=== PATIENT | female | born 1955 | race Caucasian/White ===

== ENCOUNTER 2018-02-06 21:27 | Emergency (ER) | payer MEDICAID ==
[~2018-02-06] VITALS: Ht 154.9 cm; Wt 45.8 kg
--- OUTSIDE RECORDS SUMMARY | ~2018-02-06 | XMS | Clinical Summary ---
Demographics + + + | Address | [address] | | | [place] [address] | + + + | Home Phone | | + + + | Preferred Language | Unknown | + + + | Marital Status | | + + + | Protestant Affiliation | Unknown | + + + | Race | Unknown | + + + | Ethnic Group | Unknown | + + + Author + + + | Author | [facility] | + + + | Organization | [facility] | + + + | Address | Unknown | + + + | Phone | Unavailable | + + + Support + + + + + | Name | Relationship | Address | Phone | + + + + + | Peter Vences | ECON | [address] | | | | | [place] | | | | | [address] | | + + + + + Care Team Providers + +------+ + | Care Deliverer Food Name | Role | Phone | + +------+ + | Manuelito Farire MD | PP | | + +------+ + Allergies Not on File Current Medications Not on file Active Problems Not on file Social History + +-------+ +--------+------+ | Tobacco [...] on file | | + + + Last Filed Vital Signs + + + + | Vital Sign | Reading | Time Taken | + + + + | Blood Pressure | 128/82 | 08/15/2009 8:30 AM PST | + + + + | Pulse | - | - | + + + + | Temperature | - | - | + + + + | Respiratory Rate | - | - | + + + + | Oxygen Saturation | - | - | + + + + | Inhaled Oxygen | - | - | | Concentration | | | + + + + | Weight | 46.7 kg (103 lb) | 08/15/2009 8:30 AM PST | + + + + | Height | 160 cm (5' 3") | 07/27/2009 8:27 AM PDT | + + + + | Body Mass Index | 18.25 | 08/15/2009 8:30 AM PST | + + + + Plan of Treatment Not on file Results Not on filefrom Last 3 Months
--- OUTSIDE RECORDS SUMMARY | ~2018-02-06 | XMS | Clinical Summary ---
Demographics + + + | Address | [address] | | | [place] [address] | + + + | Home Phone | | + + + | Preferred Language | Unknown | + + + | Marital Status | Unknown | + + + | Advent Affiliation | Unknown | + + + | Race | Unknown | + + + | Ethnic Group | Unknown | + + + Author + + + | Author | [facility] | | | and [facility] | + + + | Organization | [facility] | | | and [place] | + + + | Address | Unknown | + + + | Phone | Unavailable | + + + Care Team Providers + +------+ + | Care Manager Solution Name | Role | Phone | + +------+ + PP | Unavailable | + +------+ + Allergies Not on [...] on file | | + + + Plan of Treatment + + + + + | Health Maintenance | Due Date | Last Done | Comments | + + + + + | Hepatitis C | | | | | Screening | 7 | | | + + + + + | Vaccine: | | | | | Dtap/Tdap/Td (1 - | 6 | | | | Tdap) | | | | + + + + + | CERVICAL CANCER | | | | | SCREENING (PAP EVERY | 8 | | | | 3 YEARS 21-64 ) | | | | + + + + + | BREAST CANCER | | | | | SCREENING (MAMM Q2 | 7 | | | | YEARS 50-74) | | | | + + + + + | COLON CANCER | | | | | SCREENING | 7 | | | | (COLONOSCOPY EVERY | | | | | 10 YEARS 50-75) | | | | + + + + + | Vaccine: Influenza | | | | | (Season Ended) | 8 | | | + + + + + Results Not on filefrom Last 3 Months"
--- OUTSIDE RECORDS SUMMARY | ~2018-02-06 | XMS | Clinical Summary ---
Demographics + + + | Address | [address] | | | [place] [address] | + + + | Home Phone [...] Author + + + | Author | [facility] | | | and [facility] | + + + | Organization | [facility] | | | and [place] | + + + | Address | Unknown | + + + | Phone | Unavailable | + + + Care Team Providers + +------+ + | Care Medicaid Plan Compliance Director Name | Role | Phone | + [...]
--- OUTSIDE RECORDS SUMMARY | ~2018-02-06 | XMS | Clinical Summary ---
Demographics + + + | Address | [address] | | | [place] [address] | + + + | Home Phone | | + + + | Preferred Language | Unknown | + + + | Marital Status | | + + + | Latter-Day Affiliation | Unknown | + + + | Race | Unknown | + + + | Ethnic Group | Unknown | + + + Author + + + | Author | [facility] | + + + | Organization | [facility] | + + + | Address | Unknown | + + + | Phone | Unavailable | + + + Support + + + + + | Name | Relationship | Address | Phone | + + + + + | Peter Vences | ECON | [address] | | | | | [place] | | | | | [address] | | + + + + + Care Team Providers + +------+ + | Care Police Commanding Officer Name | Role | Phone | [...]
[~2018-02-06 21:27] MED LIST: CLINDAMYCIN HC150 MG PO; FLEXERIL5 MG PO; NEURONTIN300 MG PO; NORCO 5-325 TA1 EACH PO; VICODIN 5-3001 EACH PO; VITAMIN D5000 UNIT PO; ZANAFLEX4 MG PO
[2018-02-06] MEDS ORDERED: NORCO 5-325 TA1 EACH PO (23:23)
== END 2018-02-06 23:50 | disposition home or self-care (01) ==
LOC: ED 21:27
PROC: 0HQEXZZ Repair Left Lower Arm Skin, External Approach (ICD-10-PCS; principal; 2018-02-06)
DX: S51.812A Laceration without foreign body of left forearm, initial encounter (principal); S20.212A Contusion of left front wall of thorax, initial encounter; F17.200 Nicotine dependence, unspecified, uncomplicated; Z23 Encounter for immunization; Z88.5 Allergy status to narcotic agent; W55.19XA Other contact with horse, initial encounter
CPT/HCPCS: 12002; 71045; 71260; 73090; 74177; 80053; 82150; 82550; 83690; 85025; 86850; 86900; 86901; 90471; 90715; 96361; 96374; 96375; 99284; G0480; J1170; J2405; J7030; Q9967

== ENCOUNTER 2019-03-20 19:06 | Emergency (ER) | payer SELFPAY ==
[~2019-03-20] VITALS: Ht 154.9 cm; Wt 44.5 kg
--- OUTSIDE RECORDS SUMMARY | ~2019-03-20 | XMS | Clinical Summary ---
Demographics + + + | Address | [address] | | | [place] [address] | + + + | Home Phone | | + + + | Preferred Language | Unknown | + + + | Marital Status | | + + + | Catholic Affiliation | Unknown | + + + | Race | Unknown | + + + | Ethnic Group | Unknown | + + + Author + + + | Author | [facility] | + + + | Organization | [facility] | + + + | Address | Unknown | + + + | Phone | Unavailable | + + + Support + + + + + | Name | Relationship | Address | Phone | + + + + + | Peter Vences | ECON | [address] | | | | | [place] | | | | | [address] | | + + + + + Care Team Providers + +------+ + | Care Scene Painter Name | Role | Phone | + +------+ + | Manuelito Fraire MD | PP | | + +------+ [...]
--- OUTSIDE RECORDS SUMMARY | ~2019-03-20 | XMS | Clinical Summary ---
Demographics + + + | Address | [address] | | | [place] [address] | + + + | Home Phone | | + + + | Preferred Language | Unknown | + + + | Marital Status | Unknown | + + + | Lutheran Affiliation | Unknown | + + + | Race | Unknown | + + + | Ethnic Group | Unknown | + + + Author + + + | Author | [facility] | | | and [facility] | + + + | Organization | [facility] | | | and [place] | + + + | Address | Unknown | + + + | Phone | Unavailable | + + + Care Team Providers + +------+ + | Care Insole Stiffener Name | Role | Phone | + +------+ + PP | Unavailable | + +------+ + Allergies Not on File Medications Not on file Active Problems Not [...] on file | | + + + + + + + | Job Start Date | Occupation | Industry | + + + + | Not on file | Not on file | Not on file | + + + + + + + + | Travel History | Travel Start | Travel End | + + + + + + | No recent travel history available. | + + Plan of Treatment + + + + + | Health Maintenance | Due Date | Last Done | Comments | + + + + + | Vaccine: | | | | | Dtap/Tdap/Td (1 - | 6 | | | | Tdap) | | | | + + + + + | Cervical Cancer | | | | | Screening (Pap) | 7 | | | + + + + + | Vaccine: Zoster (1 | | | | | of 2) | 7 | | | + + + + + | Vaccine: Influenza | | | | | (Season Ended) | 9 | | | + + + + + Results Not on filefrom Last 3 Months"
--- OUTSIDE RECORDS SUMMARY | ~2019-03-20 | XMS | Clinical Summary ---
Demographics + + + | Address | [address] | | | [place] [address] | + + + | Home Phone | | + + + | Preferred Language | Unknown | + + + | Marital Status | | + + + | Catholic Affiliation | Unknown | + + + | Race | Unknown | + + + | Ethnic Group | Unknown | + + + Author + + + | Author | [facility] | + + + | Organization | [facility] | + + + | Address | Unknown | + + + | Phone | Unavailable | + + + Support + + + + + | Name | Relationship | Address | Phone | + + + + + | Peter Vences | ECON | [address] | | | | | [place] | | | | | [address] | | + + + + + Care Team Providers + +------+ + | Care Coin Dealer Name | Role | Phone | + [...]
--- OUTSIDE RECORDS SUMMARY | ~2019-03-20 | XMS | Clinical Summary ---
Demographics + + + | Address | [address] | | | [place] [address] | + + + | Home Phone | | + + + | Preferred Language | Unknown | + + + | Marital Status | Unknown | + + + | Methodist Affiliation | Unknown | + + + | Race | Unknown | + + + | Ethnic Group | Unknown | + + + Author + + + | Author | [facility] | | | and [facility] | + + + | Organization | [facility] | | | and [place] | + + + | Address | Unknown | + + + | Phone | Unavailable | + + + Care Team Providers + +------+ + | Care Spa Attendant Name | Role | Phone | + [...]
[2019-03-20] MEDS ORDERED: VALIUM5 MG PO (19:27)
== END 2019-03-20 20:00 | disposition home or self-care (01) ==
LOC: ED 19:06
DX: S16.1XXA Strain of muscle, fascia and tendon at neck level, initial encounter (principal); F17.200 Nicotine dependence, unspecified, uncomplicated; Z90.710 Acquired absence of both cervix and uterus; Z88.5 Allergy status to narcotic agent; X58.XXXA Exposure to other specified factors, initial encounter
CPT/HCPCS: 96372; 99283-25; J1885

== ENCOUNTER 2019-11-22 18:44 | Emergency (ER) | payer OTHER ==
[~2019-11-22] VITALS: Ht 152.4 cm; Wt 41.3 kg
[~2019-11-22 18:44] MED LIST changes: +VALIUM5 MG PO
[2019-11-22] MEDS ORDERED: CYCLOBENZAPRINE10 MG PO (19:43)
[2019-11-22] MEDS ORDERED: NAPROXEN500 MG PO (19:43)
== END 2019-11-22 21:44 | disposition home or self-care (01) ==
LOC: ED 18:44
DX: S16.1XXA Strain of muscle, fascia and tendon at neck level, initial encounter (principal); S86.912A Strain of unspecified muscle(s) and tendon(s) at lower leg level, left leg, initial encounter; S00.93XA Contusion of unspecified part of head, initial encounter; V43.53XA Car driver injured in collision with pick-up truck in traffic accident, initial encounter; F17.200 Nicotine dependence, unspecified, uncomplicated; Z88.5 Allergy status to narcotic agent; Z79.899 Other long term (current) drug therapy
CPT/HCPCS: 70450; 72125; 73590; 99284-25

== ENCOUNTER 2020-04-25 14:08 | Emergency (ER) | payer OTHER ==
[~2020-04-25] VITALS: Ht 152.4 cm; Wt 43.1 kg
--- OUTSIDE RECORDS SUMMARY | ~2020-04-25 | XMS | Encounter Summary ---
Demographics + + + | Address | [address] | | | [place] [address] | + + + | Home Phone | | + + + | Preferred Language | Unknown | + + + | Marital Status | Unknown | + + + | Oriental Orthodox Affiliation | Unknown | + + + | Race | Unknown | + + + | Ethnic Group | Unknown | + + + Author + + + | Author | [facility] | | | and [place] | + + + | Organization | [facility] | | | and [place] | + + + | Address | Unknown | + + + | Phone | Unavailable | + + + Care Team Providers + +------+ + | Care Manager Pediatric Name | Role | Phone | + +------+ + PCP | Unavailable | + +------+ + Encounter Details +--------+ + + + + | Date | Type | Department | Care Team | Description | +--------+ + + + + | 07/27/ | Hospital | [facility] [place] [place] [facility] | [place], | Cough | | 2009 | Encounter | [address] | MD [address] | | | | [address] | [address] | | | | | [place], [place] | [place] [address] | | | | | [address] | [phone] | | | | | [phone] | | | +--------+ + + + + Social History + +-------+ [...] Not on filedocumented as of this encounter Procedures + +--------+ + + + | Procedure Name | Priori | Date/Time | Associated Diagnosis | Comments | | | ty | | | | + +--------+ + + + | XR CHEST 2 VIEWS | Routin | 07/27/2009 | | Results for this | | | e | 12:34 PM | | procedure are in the | | | | PDT | | results section. | + +--------+ + + + documented in this encounter Results XR Chest 2 Vws (07/27/2009 12:34 PM PDT) + + | Specimen | + + | | + + + + + | Narrative | Performed At | + + + | [id number] | | | Page 1 RADIOLOGY | | | / | | | O/P [facility] | | | NAME: [place] [address] | | | | | | | | | DATE OF : 1955 ORDER NUMBER: [id number] EXAM | | | DATE/TIME: 07/27/2009 12:15 P ORDERING PHYSICIAN: JUHI | | | SERA Yuen ORDER DETAIL: 7000 / / BELKIS EXAM DESCRIPTION: XR CHEST | | | 2 VIEW | | | | | | TWO-VIEW CHEST 07/27/2009 HISTORY Cough. TECHNIQUE PA and | | | lateral views of the chest were obtained. COMPARISON None. | | | FINDINGS Overall lung volumes are within normal limits. Nipple | | | shadows superimpose the lower lungs. No suspicious pulmonary | | | parenchymal or pleural-based masses or nodules are seen. No acute | | | pneumonia or pulmonary edema. No pleural effusion. The heart is | | | normal size. Darby are symmetric and no hilar or mediastinal | | | lymphadenopathy is apparent. IMPRESSION No acute cardiopulmonary | | | disease radiographically. Read by SELENE SALDAÑA MD 07/27/2009 | | | 06:44 P Electronically Signed by SELENE SALDAÑA MD 07/28/2009 08:13 | | | P P A | | | EMILY/[id number]/ cc: MD BEAU LANDA, | | | MD SERA REYNAGA MD | | + + + + + | Procedure Note | + + | Adan Hays Conversion - 06/06/2019 9:45 PM PDT | | [id number] Page 1 | | RADIOLOGY / | | O/P | | [facility] NAME: REBECCA IRVING | | [place] [address] | | | | DATE OF : 1955 | | | | ORDER NUMBER: [id number] | | EXAM DATE/TIME: 07/27/2009 12:15 P | | ORDERING PHYSICIAN: SERA REYNAGA | | ORDER DETAIL: 7000 / / BELKIS | | EXAM DESCRIPTION: XR CHEST 2 VIEW | | | | TWO-VIEW CHEST 07/27/2009 | | | | HISTORY | | Cough. | | | | TECHNIQUE | | PA and lateral views of the chest were obtained. | | | | COMPARISON | | None. | | | | FINDINGS | | Overall lung volumes are within normal limits. Nipple shadows | | superimpose the lower lungs. No suspicious pulmonary parenchymal or | | pleural-based masses or nodules are seen. No acute pneumonia or | | pulmonary edema. No pleural effusion. The heart is normal size. Darby | | are symmetric and no hilar or mediastinal lymphadenopathy is apparent. | | | | IMPRESSION | | No acute cardiopulmonary disease radiographically. | | | | | | Read by | | SELENE SALDAÑA MD 07/27/2009 06:44 P | | Electronically Signed by | | SELENE SALDAÑA MD 07/28/2009 08:13 P | | | | P | | A | | [id number]/ | | cc: SELENE SALDAÑA MD | | BEAU SANCHEZ MD | | SERA REYNAGA MD | + + documented in this encounter Visit Diagnoses + + | Diagnosis | + + | Cough | + + documented in this encounter"
--- OUTSIDE RECORDS SUMMARY | ~2020-04-25 | XMS | Encounter Summary ---
Demographics + + + | Address | [address] | | | [place] [address] | + + + | Home Phone | | + + + | Preferred Language | Unknown | + + + | Marital Status | Unknown | + + + | Buddhist Affiliation | Unknown | + + + | Race | Unknown | + + + | Ethnic Group | Unknown | + + + Author + + + | Author | [facility] | | | and [place] | + + + | Organization | [facility] | | | and [place] | + + + | Address | Unknown | + + + | Phone | Unavailable | + + + Care Team Providers + +------+ + | Care Preventive Medicine Officer Name | Role | Phone | + [...] + | 06/13/ | Refill | [facility] | Sherrie Balderrama PA | Medication Refill | | 2015 | | MEDICINE [place] | [address] [facility] | | | | | [address] | [address] [place], [place] | | | | | [place] | [address] | | | | | [address] | | | | | | [phone] | | | +--------+--------+ + + + [...]
--- OUTSIDE RECORDS SUMMARY | ~2020-04-25 | XMS | Encounter Summary ---
Demographics + + + | Address | [address] | | | [place] [address] | + + + | Home Phone | | + + + | Preferred Language | Unknown | + + + | Marital Status | Unknown | + + + | Bahai Affiliation | Unknown | + + + | Race | Unknown | + + + | Ethnic Group | Unknown | + + + Author + + + | Author | [facility] | | | and [place] | + + + | Organization | [facility] | | | and [place] | + + + | Address | Unknown | + + + | Phone | Unavailable | + + + Care Team Providers + +------+ + | Care Certified Procedural Coder Name | Role | Phone | + +------+ + PCP | Unavailable | + +------+ + Encounter Details +--------+ + + + + | Date | Type | Department | Care Team | Description | +--------+ + + + + | 04/25/ | Hospital | [facility] | | | | 2005 - | Encounter | MED CTR EMERGENCY | | | | | | CENTER [facility] | | | | 04/26/ | | [place], [place] | | | | 2005 | | [address] | | | | | | [phone] | | | +--------+ + + + [...]
--- OUTSIDE RECORDS SUMMARY | ~2020-04-25 | XMS | Encounter Summary ---
Demographics + + + | Address | [address] | | | [place] [address] | + + + | Home Phone | | + + + | Preferred Language | Unknown | + + + | Marital Status | Unknown | + + + | Hinduism Affiliation | Unknown | + + + | Race | Unknown | + + + | Ethnic Group | Unknown | + + + Author + + + | Author | [facility] | | | and [place] | + + + | Organization | [facility] | | | and [place] | + + + | Address | Unknown | + + + | Phone | Unavailable | + + + Care Team Providers + +------+ + | Care Center Manager Name | Role | Phone | + +------+ + PCP | Unavailable | + +------+ + Encounter Details +--------+ + + + + | Date | Type | Department | Care Team | Description | +--------+ + + + + | 08/14/ | Hospital | [facility] | Unknown, | | | 1993 | Encounter | MED CTR XRAY [address] | MD [place] . | | | | | [place] | | | | | | [place] [address] | (Fax) | | | | | [phone] | | | +--------+ + + + [...]
--- OUTSIDE RECORDS SUMMARY | ~2020-04-25 | XMS | Encounter Summary ---
Demographics + + + | Address | [address] | | | [place] [address] | + + + | Home Phone | | + + + | Preferred Language | Unknown | + + + | Marital Status | Unknown | + + + | Hoahaoism Affiliation | Unknown | + + + | Race | Unknown | + + + | Ethnic Group | Unknown | + + + Author + + + | Author | [facility] | | | and [place] | + + + | Organization | [facility] | | | and [place] | + + + | Address | Unknown | + + + | Phone | Unavailable | + + + Care Team Providers + +------+ + | Care Flight/Transport Nurse Name | Role | Phone | + +------+ + PCP | Unavailable | + +------+ + Encounter Details +--------+ + + + + | Date | Type | Department | Care Team | Description | +--------+ + + + + | 05/25/ | Hospital | [facility] | Terry Kim | | | 2007 | Encounter | MED CTR GENERIC OP | [place] [address] | | | | | CONV DE[address] | [place], [place] | | | | | [place], | [address] | | | | | [place] [address] | | | | | | [phone] | | | +--------+ + + + [...]
--- OUTSIDE RECORDS SUMMARY | ~2020-04-25 | XMS | Encounter Summary ---
Demographics + + + | Address | [address] | | | [place] [address] | + + + | Home Phone | | + + + | Preferred Language | Unknown | + + + | Marital Status | Unknown | + + + | Hoahaoism Affiliation | Unknown | + + + | Race | Unknown | + + + | Ethnic Group | Unknown | + + + Author + + + | Author | [facility] | | | and [place] | + + + | Organization | [facility] | | | and [place] | + + + | Address | Unknown | + + + | Phone | Unavailable | + + + Care Team Providers + +------+ + | Care Flight Attendant Ramp Name | Role | Phone | + +------+ + PCP | Unavailable | + +------+ + Encounter Details +--------+ + + + + | Date | Type | Department | Care Team | Description | +--------+ + + + + | 09/29/ | Hospital | [facility] | | | | 1996 | Encounter | MED CTR XRAY [address] | | | | | | [address] | | | | | | [place] [address] | | | | | | [phone] | | | +--------+ + + + [...]
--- OUTSIDE RECORDS SUMMARY | ~2020-04-25 | XMS | Clinical Summary ---
Demographics + + + | Address | [address] | | | [place] [address] | + + + | Home Phone | | + + + | Preferred Language | Unknown | + + + | Marital Status | Unknown | + + + | Rastafari Affiliation | Unknown | + + + | Race | Unknown | + + + | Ethnic Group | Unknown | + + + Author + + + | Author | [facility] | | | and [place] | + + + | Organization | [facility] | | | and [place] | + + + | Address | Unknown | + + + | Phone | Unavailable | + + + Care Team Providers + +------+ + | Care Cutter In Name | Role | Phone | + [...]
[~2020-04-25 14:08] MED LIST changes: +CYCLOBENZAPRINE10 MG PO; +MACROBID 100 M100 MG PO; +NAPROXEN500 MG PO
[2020-04-25] MEDS ORDERED: NORCO 5-325 TA1 EACH PO (18:44)
[2020-04-25] MEDS ORDERED: LIDODERM1 EACH TP (18:44)
== END 2020-04-25 19:37 | disposition home or self-care (01) ==
LOC: ED 14:08
DX: S22.42XA Multiple fractures of ribs, left side, initial encounter for closed fracture (principal); F17.200 Nicotine dependence, unspecified, uncomplicated; Z88.5 Allergy status to narcotic agent; X58.XXXA Exposure to other specified factors, initial encounter
CPT/HCPCS: 71260; 72125; 72128; 72131; 74177; 80053; 85025; 99284-25; J1885; J2405; J7040; Q9967

== ENCOUNTER 2020-04-28 17:25 | Emergency (ER) | payer OTHER ==
[~2020-04-28] VITALS: Ht 152.4 cm; Wt 43.1 kg
--- OUTSIDE RECORDS SUMMARY | ~2020-04-28 | XMS | Encounter Summary ---
Demographics + + + | Address | [address] | | | [place] [address] | + + + | Home Phone | | + + + | Preferred Language | Unknown | + + + | Marital Status | Unknown | + + + | Confucianist Affiliation | Unknown | + + + | Race | Unknown | + + + | Ethnic Group | Unknown | + + + Author + + + | Author | [facility] | | | and [place] | + + + | Organization | [facility] | | | and [place] | + + + | Address | Unknown | + + + | Phone | Unavailable | + + + Care Team Providers + +------+ + | Care [employer] Industrial Arts Teacher Name | Role | Phone | + +------+ + | Manuelito Fraire MD | PCP | | + +------+ + Reason for Visit + + + | Reason | Comments | + + + | Medication Refill | | + + + Encounter Details +--------+--------+ + + + | Date | Type | Department | Care Team | Description | +--------+--------+ + + + | 06/13/ | Refill | [facility] | Sherrie Balderrama PA | Medication Refill | | 2015 | | MEDICINE [place] | [address] [facility] | | | | | [address] | [address] [place], [place] | | | | | [place] | [address] | | | | | [address] | | | | | | [phone] | | | +--------+--------+ + + + Social History + +-------+ +--------+------+ | Tobacco Use | Types | Packs/Day | Years | Date | | | | | Used | | + +-------+ +--------+------+ | Never Assessed | | | | | + +-------+ +--------+------+ + + + | Sex Assigned at | Date Recorded | | | | + + + | Not on file | | + + + documented as of this encounter Plan of Treatment Not on filedocumented as of this encounter Visit Diagnoses Not on filedocumented in this encounter"
--- OUTSIDE RECORDS SUMMARY | ~2020-04-28 | XMS | Encounter Summary ---
Demographics + + + | Address | [address] | | | [place] [address] | + + + | Home Phone | | + + + | Preferred Language | Unknown | + + + | Marital Status | Unknown | + + + | Temple Affiliation | Unknown | + + + | Race | Unknown | + + + | Ethnic Group | Unknown | + + + Author + + + | Author | [facility] | | | and [place] | + + + | Organization | [facility] | | | and [place] | + + + | Address | Unknown | + + + | Phone | Unavailable | + + + Care Team Providers + +------+ + | Care Office Receptionist Name | Role | Phone | + +------+ + PCP | Unavailable | + +------+ + Encounter Details +--------+ + + + + | Date | Type | Department | Care Team | Description | +--------+ + + + + | 08/14/ | Hospital | [facility] | Unknown, | | | 1993 | Encounter | MED CTR XRAY [address] | MD Susan . | | | | | [place] | | | | | | [place] [address] | (Fax) | | | | | [phone] | | | +--------+ + + + [...]
--- OUTSIDE RECORDS SUMMARY | ~2020-04-28 | XMS | Encounter Summary ---
Demographics + + + | Address | [address] | | | [place] [address] | + + + | Home Phone | | + + + | Preferred Language | Unknown | + + + | Marital Status | Unknown | + + + | Denominational Affiliation | Unknown | + + + | Race | Unknown | + + + | Ethnic Group | Unknown | + + + Author + + + | Author | [facility] [place] | | | and [place] | + + + | Organization | [facility] [place] | | | and [place] | + + + | Address | Unknown | + + + | Phone | Unavailable | + + + Care Team Providers + +------+ + | Care Biology Tutor Name | Role | Phone | + +------+ + PCP | Unavailable | + +------+ + Encounter Details +--------+ + + + + | Date | Type | Department | Care Team | Description | +--------+ + + + + | 07/27/ | Hospital | [facility] | [place], | Cough | | 2009 | Encounter | CONVERSION DEP [address] | [address] | | | | [address] | [address] | | | | | [place], [place] | [place] [address] | | | | | [address] | [phone] | | | | | [phone] | | | +--------+ + + + [...] Performed At | + + + | [id number] | | | Page 1 RADIOLOGY | | | / | | | O/P [facility] | | | NAME: [place] [address] | | | | | | | | | DATE OF : 1955 ORDER NUMBER: [id number] EXAM | | | DATE/TIME: 07/27/2009 12:15 [...] | P P A | | | [id number]/ cc: MD BEAU LANDA, | | | MD SERA REYNAGA MD | | + + + + + | Procedure Note | + + | Adan Hays Conversion - 06/06/2019 9:45 PM PDT | | [id number] Page 1 | | RADIOLOGY / | | O/P | | [facility] NAME: REBECCA IRVING | | [place] [address] | | | | DATE OF : 1955 | | | | ORDER NUMBER: [id number] | | EXAM DATE/TIME: 07/27/2009 12:15 P [...] | P | | A | | [id number]/ | | cc: SELENE SALDAÑA MD | | BEAU SANCHEZ MD | | SERA REYNAGA MD | + + documented in this encounter Visit Diagnoses + + | Diagnosis | + + | Cough | + + documented in this encounter"
--- OUTSIDE RECORDS SUMMARY | ~2020-04-28 | XMS | Encounter Summary ---
Demographics + + + | Address | [address] | | | [place] [address] | + + + | Home Phone | | + + + | Preferred Language | Unknown | + + + | Marital Status | Unknown | + + + | Religion Affiliation | Unknown | + + + | Race | Unknown | + + + | Ethnic Group | Unknown | + + + Author + + + | Author | [facility] [place] | | | and [place] | + + + | Organization | [facility] [place] | | | and [place] | + + + | Address | Unknown | + + + | Phone | Unavailable | + + + Care Team Providers + +------+ + | Care Machine Leather Trimmer Name | Role | Phone | + +------+ + PCP | Unavailable | + +------+ + Encounter Details +--------+ + + + + | Date | Type | Department | Care Team | Description | +--------+ + + + + | 09/29/ | Hospital | [facility] | | | | 1996 | Encounter | MED CTR XRAY [address] | | | | | | [address] | | | | | | [place] [address] | | | | | | [phone] | | | +--------+ + + + [...]
--- OUTSIDE RECORDS SUMMARY | ~2020-04-28 | XMS | Clinical Summary ---
Demographics + + + | Address | [address] | | | [place] [address] | + + + | Home Phone | | + + + | Preferred Language | Unknown | + + + | Marital Status | Unknown | + + + | Uatsdin Affiliation | Unknown | + + + | Race | Unknown | + + + | Ethnic Group | Unknown | + + + Author + + + | Author | [facility] [place] | | | and [place] | + + + | Organization | [facility] [place] | | | and [place] | + + + | Address | Unknown | + + + | Phone | Unavailable | + + + Care Team Providers + +------+ + | Care Automobile Carpets Molder Name | Role | Phone | + +------+ + | Manuelito Fraire MD | PCP | | + +------+ + Allergies Not [...] + + + Last Filed Vital Signs Not on file Plan of Treatment + + +-------+ + | Health Maintenance | Due Date | Last | Comments | | | | Done | | + + +-------+ + | Vaccine: | | | | | Dtap/Tdap/Td (1 - | 6 | | | | Tdap) | | | | + + +-------+ + | Cervical Cancer | | | | | Screening (Pap) | 7 | | | + + +-------+ + | Vaccine: Zoster (1 | | | | | of 2) | 7 | | | + + +-------+ + | Breast Cancer | | | | | Screening | 2 | | | + + +-------+ + | Vaccine: Influenza | | | | | (#1) | 0 | | | + + +-------+ + Results Not on filefrom Last 3 Months"
--- OUTSIDE RECORDS SUMMARY | ~2020-04-28 | XMS | Encounter Summary ---
Demographics + + + | Address | [address] | | | [place] [address] | + + + | Home Phone | | + + + | Preferred Language | Unknown | + + + | Marital Status | Unknown | + + + | Sabianism Affiliation | Unknown | + + + | Race | Unknown | + + + | Ethnic Group | Unknown | + + + Author + + + | Author | [facility] [place] | | | and [place] | + + + | Organization | [facility] [place] | | | and [place] | + + + | Address | Unknown | + + + | Phone | Unavailable | + + + Care Team Providers + +------+ + | Care Spray Blender Name | Role | Phone | + +------+ + PCP | Unavailable | + +------+ + Encounter Details +--------+ + + + + | Date | Type | Department | Care Team | Description | +--------+ + + + + | 04/25/ | Hospital | [facility] | | | | 2005 - | Encounter | MED CTR EMERGENCY | | | | | | CENTER [facility] | | | | 04/26/ | | [place], [place] | | | | 2005 | | [address] | | | | | | [phone] | | | +--------+ + + + [...]
--- OUTSIDE RECORDS SUMMARY | ~2020-04-28 | XMS | Encounter Summary ---
Demographics + + + | Address | [address] | | | [place] [address] | + + + | Home Phone | | + + + | Preferred Language | Unknown | + + + | Marital Status | Unknown | + + + | Latter Day Affiliation | Unknown | + + + | Race | Unknown | + + + | Ethnic Group | Unknown | + + + Author + + + | Author | [facility] [place] | | | and [place] | + + + | Organization | [facility] [place] | | | and [place] | + + + | Address | Unknown | + + + | Phone | Unavailable | + + + Care Team Providers + +------+ + | Care Packing Machine Tender Name | Role | Phone | + +------+ + PCP | Unavailable | + +------+ + Encounter Details +--------+ + + + + | Date | Type | Department | Care Team | Description | +--------+ + + + + | 05/25/ | Hospital | [facility] | Terry Kim | | | 2007 | Encounter | MED CTR GENERIC OP | [place] | | | | | CONV DEPT [address] | [place], [place] | | | | | [place], | [address] | | | | | [place] [address] | | | | | | [phone] | | | +--------+ + + + [...]
[~2020-04-28 17:25] MED LIST changes: +LIDODERM1 EACH TP
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
[2020-04-28] MEDS ORDERED: NORCO 5-325 TA1 EACH PO (19:06)
== END 2020-04-28 19:15 | disposition home or self-care (01) ==
LOC: ED 17:25
DX: R04.2 Hemoptysis (principal); S22.42XD Multiple fractures of ribs, left side, subsequent encounter for fracture with routine healing; Z87.891 Personal history of nicotine dependence; Z88.5 Allergy status to narcotic agent; Z79.899 Other long term (current) drug therapy
CPT/HCPCS: 71046; 99283-25

== ENCOUNTER 2023-07-29 16:52 | Emergency (ER) | payer MEDICARE, OTHER ==
[~2023-07-29] VITALS: Ht 152.4 cm; Wt 40.4 kg
[~2023-07-29 16:52] MED LIST changes: +MELOXICAM15 MG PO
[2023-07-29 18:39] LABS: BILIRUBIN, URINE NEGATIVE (negative); BLOOD/HGB, URINE NEGATIVE (Negative); KETONE, URINE NEGATIVE (Negative); LEUK ESTERASE, URINE SMALL (negative); NITRITE, URINE POSITIVE (negative); PH, URINE 5.5 (5-7)
[2023-07-29 18:44] LABS: BACTERIA, URINE 3+ /hpf (negative); CASTS, URINE NONE SEEN \\lpf; COLLECTION TYPE, URINE CLEAN CATCH; CRYSTALS, URINE NONE SEEN (0-1+); EPITHELIAL CELLS, URINE SQUAMOUS 1+ /lpf (0-1+); RED BLOOD CELLS, URINE 0-1 /hpf (0-5); REFLEX CULTURE, URINE Yes (No)
[2023-07-29] MEDS ORDERED: MACROBID 100 M100 MG PO (20:35)
[2023-07-29 20:50] VITALS: BP 137/76
== END 2023-07-29 20:50 | disposition home or self-care (01) ==
LOC: ED 16:52
PROVIDERS: Emergency Medicine
DX: M47.26 Other spondylosis with radiculopathy, lumbar region (principal); N39.0 Urinary tract infection, site not specified; Z87.891 Personal history of nicotine dependence
CPT/HCPCS: 72110; 81001; 87088; 96372; 99283-25; J1100

== ENCOUNTER 2024-07-04 17:23 | Emergency (ER) | payer MEDICARE, OTHER ==
[~2024-07-04] VITALS: Ht 152.4 cm; Wt 41.5 kg
[2024-07-04] MEDS ORDERED: LIDOCAINE HCL 4% 1 EACH PATCH TD ONE (19:45)
[2024-07-04] MEDS ORDERED: KETOROLAC TROMETHAMINE 30 MG/ML VIAL IM ONE (19:45)
[2024-07-04] MEDS ORDERED: CYCLOBENZAPRINE10 MG PO (19:49)
[2024-07-04] MEDS ORDERED: METHYLPREDNISOLO4 M1 PO (19:49)
[2024-07-04] MEDS ORDERED: ACETAMINOPHEN 500 MG TAB PO ONE (20:00)
[2024-07-04] MEDS ORDERED: CYCLOBENZAPRINE HCL 10 MG HOME.PACK PO ONE (20:00)
[2024-07-04 20:50] VITALS: BP 125/78
[2024-07-04] MEDS ORDERED: LIDOCAINE PATCH REMOVAL 1 EA TD SCH (21:00)
== END 2024-07-04 20:50 | disposition home or self-care (01) ==
LOC: ED 17:23
DX: M54.41 Lumbago with sciatica, right side (principal); Z87.891 Personal history of nicotine dependence; M06.9 Rheumatoid arthritis, unspecified; Z88.5 Allergy status to narcotic agent
CPT/HCPCS: 96372; 99283-25; A9270; J1885